=== PATIENT | male | born 1985 | race Caucasian/White ===

== ENCOUNTER 2024-08-25 14:32 | Outpatient (NON) | payer BC, SELFPAY ==
--- OUTSIDE RECORDS SUMMARY | 2024-08-25 14:37 | XMS_ITS | Encounter Summary ---
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
--- OUTSIDE RECORDS SUMMARY | 2024-08-25 14:37 | XMS_ITS | Clinical Summary ---
Author Organization [facility] Address [address] [place] [address] Care Team Providers Care Pump Oiler Name Role Phone Provider, None Primary Care Provider Unavailabl e Allergies Active Allergy Reactions Criticality Noted Date Comments Cephalexin Unknown High 05/05/2021 Medications Vyvanse 60 MG Capsule 0 04/19/2021 Active Active Problems No known active problems Social History Tobacco Use Types Packs/Day Years Used Date Smoking Tobacco: Never Smokeless Tobacco: Never Sex and Gender Information Value Date Recorded Sex Assigned at Not on file 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 Gender Identity Not on file Sexual Orientation Not on file Last Filed Vital Signs Vital Sign Reading Time Taken Comments Blood Pressure 137/93 02/11/2022 9:01 AM SUPERVISOR PAINTING SHIPYARD Pulse 120 02/11/2022 9:20 AM SUPERVISOR PAINTING SHIPYARD Temperature 36.7 C (98.1 F) 02/11/2022 9:01 AM SUPERVISOR PAINTING SHIPYARD Respiratory Rate 22 02/11/2022 9:01 AM SUPERVISOR PAINTING SHIPYARD Oxygen Saturation 97% 02/11/2022 9:01 AM SUPERVISOR PAINTING SHIPYARD Inhaled Oxygen Concentration - - Weight 95.3 kg (210 lb) 02/11/2022 9:01 AM SUPERVISOR PAINTING SHIPYARD Height 200.7 cm (6' 7) 02/11/2022 9:01 AM SUPERVISOR PAINTING SHIPYARD Body Mass Index 23.66 02/11/2022 9:01 AM SUPERVISOR PAINTING SHIPYARD Plan of Treatment Health Maintenance Due Date Last Done Comments Hepatitis C Virus (HCV) Screening 1987 TdaP Immunization 1987 Hepatitis B Immunization (1 of 3 - 19+ 3-dose series) 2006 SARS-COV-2 Immunization ( season) 2023 05/25/2020, 04/27/2020 Influenza Immunization (Seas on Ended) 2024 Respiratory Syncytial Virus (RSV) Immunization (Adult) (1 - 1-dose 75+ series) 2062 Human Papillomavirus (HPV) Immunization Aged Out No longer eligible b ased on patient's age to complete this topic Meningococcal Immunization (ACWY) Aged Out No longer eligible b ased on patient's age to complete this topic Pneumococcal Immunization Combined Aged Out No longer eligible b ased on patient's age to complete this topic Rotavirus Immunization Aged Out No lo nger eligible based on patient's age to complete this topic Insurance [facility] Care Teams Pump Oiler Relationship Specialty Start Date End Date Provider, None SCOTTIE PCP - General 05/05/21
--- OUTSIDE RECORDS SUMMARY | 2024-08-25 14:37 | XMS_ITS | Clinical Summary ---
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 Gender Identity Not on file Sexual Orientation Not on file Plan of Treatment Health Maintenance Due Date Last Done Comments Annual Physical 1990 DTaP, Tdap and Td Vaccines (6 - Tdap) 06/18/2002 06/17/2002, 07/11/1992, 07/12/1988, Additional history exists Hepatitis C 2005 COVID-19 Vaccine ( season) 2023 Hepatitis B Vaccines Completed 06/23/1997, 12/30/1996, 11/08/1996 Meningococcal Vaccine Aged Out 09/25/2005 No mauri areli eligible based on patient's age to complete this topic HPV Vaccines Aged Out No longer eligi ble based on patient's age to complete this topic Meningococcal B Vaccine Aged Out No l onger eligible based on patient's age to complete this topic Pneumococcal Vaccine: Pediatrics (0 to 5 Years) and At-Risk Patients (6 to 49 Years) Aged Out No longer eligible based on patient's age to complete this topic RSV Immunizations Under 20 Months Aged Out No longer eligible based on patient's age to complete this topic
[2024-08-25 18:53] LABS: Add Urine Microscopic? NO; Appearance Urine Clear (Clear); Glucose Urine UA Negative (Negative); Leukocyte Esterase Ur Negative LEU/UL (Negative); Nitrate Urine Negative (Negative); Specific Grav Ur 1.022 (1.001-1.035)
== END 2024-08-25 14:33 | disposition home or self-care (01) ==
LOC: ANHGOSHLAB 14:33
PROVIDERS: PCP Internal Medicine; Visit Provider Clinical Nurse Specialist
DX: R39.15 Urgency of urination (principal)
CPT/HCPCS: 81003

== ENCOUNTER 2024-09-11 14:26 | Emergency (ER) | payer BC, SELFPAY ==
--- NOTE | ~2024-09-11 | XR_ITS ---
Clinical Indication: Back pain, pneumothorax PA and lateral views of the chest: Comparison: None Findings: The lungs are clear, without evidence of focal consolidation or pleural effusion. Cardiome diastinal silhouette is within normal limits. Bones and soft tissues are unremarkable. Impression: Normal chest. Reviewed, dictated and finalized at [facility]. Impression: Normal chest.
[2024-09-11 14:32] VITALS: BP 141/93; PULSE 100; RESP 16; TEMP 36.5; O2SAT 99
--- NOTE | 2024-09-11 14:42 | ED_ITS ---
HPI - Back Pain/Injury General Chief Complaint: Back Pain/Injury Stated Complaint: Back Pain Time Seen by Provider: 09/11/24 14:33 Source: patient and RN notes reviewed Mode of arrival: ambulatory Limitations: no limitations History of Present Illness HPI Narrative: Patient presents today complaining of sudden onset pain to the right mid back under the scapula that started approximately 2 hours prior to arrival. Pain radiates down the right arm. Currently rates his pain 5/10 and took some aspirin without relief. He denies shortness of breath, chest pain, cough, recent travel or immobilization. Reports that the pain is giving him anxiety. Patient vapes. Related Data Home Medications ?Medication ?Instructions ?Recorded ?Confirmed ?Last Taken ?Type lisdexamfetamine 60 mg capsule 60 mg PO DAILY 08/25/24 09/03/24 Unknown History (Vyvanse) sertraline 100 mg tablet (Zoloft) 100 mg PO DAILY 08/25/24 09/03/24 Unknown History sertraline 50 mg tablet 50 mg PO DAILY 08/25/24 09/03/24 Unknown History Allergies Allergy/AdvReac Type Severity Reaction Status Date / Time cephalexin AdvReac Unknown Verified 09/03/24 08:52 PMFSH Past Medical History Medical History (Reviewed 09/11/24 @ 14:49 by Mercedes Moseley, [facility], ) Urinary urgency Anxiety ADHD Tachycardia BRBPR (bright red blood per rectum) Family History Family History (Reviewed 09/11/24 @ 14:49 by Mercedes Moseley, [facility], ) Grandparent Alcoholism Asthma Grandparent Diabetes mellitus Social History Social History (Reviewed 09/11/24 @ 14:49 by Mercedes Moseley, [facility], ) Smoking packs per day: 1 Smoking cigarettes per day: 20.0 Years smoked: 10 Smoking pack-years: 10.00 Smoking status: Former smoker Tobacco type: cigarettes Alcohol intake: never Substance use: never Substance use type: does not use Living arrangements: with family Spiritual care concerns: No Comments At time of signature, I have reviewed and agree with nursing past medical, surgical, social and family history unless otherwise noted. Please see nursing chart for further information. There is no relevant family history pertinent to the presenting complaint Exam Narrative: GENERAL: Well-appearing, well-nourished, and in no acute distress. HEAD: Normocephalic, atraumatic. EYES: EOMI. No redness or drainage. Conjunctivae normal. ENT: Mucous membranes pink and moist. NECK: Normal AROM. States movement of the neck can elicit pain in the affected area. CHEST: No respiratory distress. Clear to auscultation. HEART: Regular rate and rhythm. No murmur appreciated. Normal peripheral pulses. MUSCULOSKELETAL: No bony tenderness spine. Right thoracic musculature is nontender. Patient states the pain is internal EXTREMITIES: Normal range of motion. No edema. Hand network applications specialist equal and strong. Distal sensation intact. Capillary refill. Radial pulse normal. SKIN: Warm, dry, no rash. Capillary refill normal. Normal skin turgor. NEURO: No focal deficits. Alert and oriented x3. Gait steady. PSYCH: Normal affect. No signs of depression or anxiety. Course Course Level of Care: Express Care Visit Vital Signs Vital signs: Vital Signs Temperature 97.7 F 09/11/24 14:32 Pulse Rate 100 09/11/24 14:32 Respiratory Rate 16 09/11/24 14:32 Blood Pressure 141/93 H 09/11/24 14:32 Pulse Oximetry 99 09/11/24 14:32 Temperature 97.7 F 09/11/24 14:32 Pulse Rate 100 09/11/24 14:32 Respiratory Rate 16 09/11/24 14:32 Blood Pressure 141/93 H 09/11/24 14:32 Pulse Oximetry 99 09/11/24 14:32 Reviewed MDM - Back Pain/Injury MDM Narrative Medical decision making narrative: 39-year-old male patient presents complaining of sudden-onset right mid back pain under the scapula without any injury or trauma to the area. Onset 2 hours prior to arrival. Pain radiated down the right arm. Denies chest pain, shor tness of breath, recent leg swelling, cough, immobility, or travel. Aspirin taken prior to arrival without relief. Exam is grossly negative and back is nontender. Chest x-ray negative. EKG shows sinus rhythm. Wells criteria score of 0 for probable pulmonary embolism. Patient will be treated with some Flexeril for musculoskeletal etiology with recommendation for PCP follow-up next week if symptoms persist. Strict ED precautions given if symptoms worsen. Vital signs stable. Differential Diagnosis Differential diagnosis: Likely thoracic back pain and other (Pneumothorax, pulmonary embolism) Imaging Data Radiologist's impression: ITS Impressions Chest X-Ray 09/11/24 14:57 Impression: Normal chest. ECG Data EKG #1: Attestation: I personally reviewed and interpreted this ECG as follows: ECG completion date: 09/11/24 ECG completion time: 15:22 Prior ECG tracings: not available for review Interpretation: Sinus rhythm. Heart rate 69. MA interval 201 Critical Care Time Critical Care Time Critical Care Time: No Discharge Plan Discharge Clinical Impression: Mid back pain on right side Patient Disposition: Home Condition: Stable Instructions: Back Pain (ED) Additional Instructions: Your EKG and chest x-ray were negative for any acute findings today. Please take an anti-inflammatory at home such as Aleve or ibuprofen for your discomfort. Take the Flexeril to help relax any muscle spasms. Do not drive within 8 hours of taking the Flexeril as it can make you drowsy. Follow-up with your PCP (April BILLING AND INSURANCE COORDINATOR) next week if symptoms are not improving. As discussed, if you develop any additional worsening symptoms such as chest pain, shortness of breath, please go to the ER immediately for further evaluation. Patient Language: Georgian Prescriptions: New cyclobenzaprine 10 mg tablet 10 mg PO TID PRN (Reason: muscle spasm) Qty: 20 0RF No Action sertraline [Zoloft] 100 mg tablet 100 mg PO DAILY lisdexamfetamine [Vyvanse] 60 mg capsule 60 mg PO DAILY sertraline 50 mg tablet 50 mg PO DAILY Follow-up/Referrals: PHYSICIAN,PLC ENGINEER [Primary Care Provider] - April Royal, DIRECTOR MARKETING-C [Advanced Practice Nurse] - Time of Disposition: 15:28
--- NOTE | 2024-09-11 15:17 | ECG_ITS ---
Test Date: 2024-09-11 15:22:29 Measurements Intervals [place] Rate: 69 P: 71 MA: 201 QRS: 36 QRSD: 97 T: 60 QT: 402 QTc: 431 Interpretive Statements SINUS RHYTHM NORMAL ECG No previous ECG available for comparison Electronically Signed On 09-12-2024 08:06:56 CDT by Breezy Liz M.D.
== END 2024-09-11 15:35 | disposition home or self-care (01) ==
PROVIDERS: Emergency Provider Nurse Practitioner
DX: M54.6 Pain in thoracic spine (principal); F17.210 Nicotine dependence, cigarettes, uncomplicated; F90.9 Attention-deficit hyperactivity disorder, unspecified type; F41.9 Anxiety disorder, unspecified
CPT/HCPCS: 71046; 93005; 99213; G0463

== ENCOUNTER 2024-09-20 01:39 | Day surgery (SDC) | payer BC, SELFPAY ==
[2024-09-03 08:44] VITALS: BMI 21.4
--- OUTSIDE RECORDS SUMMARY | 2024-09-20 01:44 | XMS_ITS | Clinical Summary ---
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 Gender Identity Not on file Sexual Orientation Not on file Last Filed Vital Signs Vital Sign Reading Time Taken Comments Blood Pressure 137/93 02/11/2022 9:01 AM SUPERVISOR POWDER AND PRIMER CANNING Pulse 120 02/11/2022 9:20 AM SUPERVISOR POWDER AND PRIMER CANNING Temperature 36.7 C (98.1 F) 02/11/2022 9:01 AM SUPERVISOR POWDER AND PRIMER CANNING Respiratory Rate 22 02/11/2022 9:01 AM SUPERVISOR POWDER AND PRIMER CANNING Oxygen Saturation 97% 02/11/2022 9:01 AM SUPERVISOR POWDER AND PRIMER CANNING Inhaled Oxygen Concentration - - Weight 95.3 kg (210 lb) 02/11/2022 9:01 AM SUPERVISOR POWDER AND PRIMER CANNING Height 200.7 cm (6' 7) 02/11/2022 9:01 AM SUPERVISOR POWDER AND PRIMER CANNING Body Mass Index 23.66 02/11/2022 9:01 AM SUPERVISOR POWDER AND PRIMER CANNING Plan of Treatment Health Maintenance Due Date Last Done Comments Hepatitis C Virus (HCV) Screening 1987 TdaP Immunization 1987 Human Papillomavirus (HPV) Immunization (1 - Male 3-dose series) 2002 Hepatitis B Immunization (1 of 3 - 19+ 3-dose series) 2006 SARS-COV-2 Immunization ( season) 2023 05/25/2020, 04/27/2020 Influenza Immunization (#1) 2024 Respiratory Syncytial Virus (RSV) Immunization (Adult) (1 - 1-dose 75+ series) 2062 Meningococcal Immunization (ACWY) Aged Out No longer eligible b ased on patient's age to complete this topic Pneumococcal Immunization Combined Aged Out No longer eligible b ased on patient's age to complete this topic Rotavirus Immunization Aged Out No lo nger eligible based on patient's age to complete this topic Insurance [facility] Care Teams Personal Lines Insurance Advisor Relationship Specialty Start Date End Date Provider, None SCOTTIE PCP - General 05/05/21
--- OUTSIDE RECORDS SUMMARY | 2024-09-20 01:44 | XMS_ITS | Encounter Summary ---
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
--- OUTSIDE RECORDS SUMMARY | 2024-09-20 01:44 | XMS_ITS | Clinical Summary ---
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
[2024-09-20 13:27] VITALS: BP 146/96; PULSE 81; RESP 20; TEMP 36.3; O2SAT 98; BMI 21.8
[2024-09-20] MEDS: LACTATED RINGERS 1,000 ML 150 ML IV CONT (13:39)
--- NOTE | 2024-09-20 13:59 | P.PNAN_ITS ---
Anes - Initial Pre Proc Eval Procedure: Operation Date: 09/20/24 14:30 Proposed Procedures p Diagnostic Colonoscopy - Jesus Carlisle MD Date/Time: 09/20/24 13:59 Surgeon: Jesus Carlisle MD Pre Op Diagnosis: Hemorrhage of anus and rectum Patient Data Age: 39 Gender: M Height: 2.01 m Weight: 87.9 kg Last Vital Signs Temp 36.3 C L 09/20/24 13:27 Pulse 81 09/20/24 13:27 Resp 20 09/20/24 13:27 BP 146/96 H 09/20/24 13:27 Pulse Ox 98 09/20/24 13:27 O2 Del Method Room Air 09/20/24 13:27 Allergies Allergy/AdvReac Type Severity Reaction Status Date / Time cephalexin AdvReac Unknown Verified 09/20/24 13:26 Home Medications ?Medication ?Instructions ?Recorded ?Confirmed ?Type lisdexamfetamine 60 mg capsule 60 mg PO DAILY 08/25/24 09/20/24 History (Vyvanse) sertraline 100 mg tablet (Zoloft) 100 mg PO DAILY 08/25/24 09/20/24 History sertraline 50 mg tablet 50 mg PO DAILY 08/25/24 09/20/24 History cyclobenzaprine 10 mg tablet 10 mg PO TID PRN muscle spasm #20 09/11/24 09/20/24 Rx tabs Patient hx anesthesia problems: none Family hx anesthesia problems: none Results Review: All pre-operative results and documents have been reviewed as part of the pre- operative evaluation. [facility] Past Medical History Medical History Urinary urgency Anxiety ADHD Tachycardia BRBPR (bright red blood per rectum) Family History Family History Grandparent Alcoholism Asthma Grandparent Diabetes mellitus Social History Social History Smoking packs per day: 1 Smoking cigarettes per day: 20.0 Years smoked: 10 Smoking pack-years: 10.00 Smoking status: Never smoker Tobacco type: cigarettes Alcohol intake: never Substance use: never Substance use type: does not use Living arrangements: with family Spiritual care concerns: No Anes - Eval Final PreProcedure Day of Procedure 09/20/24 13:59 Patient weight: normal Heart: regular rate and rhythm Lungs: clear to auscultation Airway: Mallampati scale class II Neurological: alert and oriented Last oral intake: >/= 8 hours ASA classification: II Emergent: no Anesthetic plan: proceed Anesthesia type and monitoring: general GIVS and standard monitoring Results Review: All pre-operative results and documents have been reviewed as part of the pre- operative evaluation. Informed Consent: The patient's anesthetic plan and its attendant risks and benefits were discussed with the patient/family/POA. Questions were solicited and answers provided to the satisfaction of the patient/family/POA.
--- NOTE | 2024-09-20 14:01 | PM.HPGS ---
History of Present Illness History of Present Illness Consent: Risks, benefits, and alternatives have been discussed and questions answered. Patient agrees to proceed with procedure. Chief complaint: Hemorrhage of anus and rectum Narrative: Jefe Garcia is a 39 year old male with rectal bleeding for 6 months, had colonoscopy 2017 for same reason and was told that secondary to hemorrhoids Review of Systems Review of Systems: All systems reviewed & are unremarkable except as noted in HPI and below PMFSH Past Medical History Medical History Urinary urgency Anxiety ADHD Tachycardia BRBPR (bright red blood per rectum) Family History Family History Grandparent Alcoholism Asthma Grandparent Diabetes mellitus Social History Social History Smoking packs per day: 1 Smoking cigarettes per day: 20.0 Years smoked: 10 Smoking pack-years: 10.00 Smoking status: Never smoker Tobacco type: cigarettes Alcohol intake: never Substance use: never Substance use type: does not use Living arrangements: with family Spiritual care concerns: No Meds Home Medications and Allergies Home Medications ?Medication ?Instructions ?Recorded ?Confirmed ?Type lisdexamfetamine 60 mg capsule 60 mg PO DAILY 08/25/24 09/20/24 History (Vyvanse) sertraline 100 mg tablet (Zoloft) 100 mg PO DAILY 08/25/24 09/20/24 History sertraline 50 mg tablet 50 mg PO DAILY 08/25/24 09/20/24 History cyclobenzaprine 10 mg tablet 10 mg PO TID PRN muscle spasm #20 09/11/24 09/20/24 Rx tabs Allergies Allergy/AdvReac Type Severity Reaction Status Date / Time cephalexin AdvReac Unknown Verified 09/20/24 13:26 Vital Signs Vital Signs - 24 hr 09/20/24 13:27 Temperature 97.3 F L Pulse Rate 81 Respiratory Rate 20 Blood Pressure 146/96 H Pulse Oximetry 98 Oxygen Delivery Room Air Exam Const: General: comfortable and no acute distress HENMT: Face/Nose/Sinus: Normal nares present Eyes: General: appearance normal, both eyes and all related structures Neck: Neck: no JVD Resp: Auscultation: clear to auscultation bilaterally Cardio: Rate: regular rate Rhythm: regular rhythm GI: Inspection: non-distended GI Palp: Yes Soft to palpation Skin: General skin exam: normal color Neuro: General: gait normal Speech: normal speech Extrem: General: normal to inspection Psych: Mental Status: mental status grossly normal Assessment and Plan Assessment and plan (1) BRBPR (bright red blood per rectum): Code(s): K62.5 - Hemorrhage of anus and rectum Status: Acute Assessment and Plan: colonoscopy
[2024-09-20 14:18] VITALS: BP 91/62; PULSE 80; RESP 25; O2SAT 97
[2024-09-20 14:28] VITALS: BP 95/63; PULSE 66; RESP 20; O2SAT 100
[2024-09-20 14:38] VITALS: BP 101/67; PULSE 66; RESP 16; O2SAT 100
== END 2024-09-20 14:52 | disposition home or self-care (01) ==
PROVIDERS: Referring Provider Clinical Nurse Specialist; Visit Provider Internal Medicine Gastroenterology
PROC: 0DJD8ZZ Inspection of Lower Intestinal Tract, Via Natural or Artificial Opening Endoscopic (ICD-10-PCS; CPT 45378; principal; 2024-09-20 14:30)
DX: K64.8 Other hemorrhoids (principal); K57.30 Diverticulosis of large intestine without perforation or abscess without bleeding; R39.15 Urgency of urination; F41.9 Anxiety disorder, unspecified; F90.9 Attention-deficit hyperactivity disorder, unspecified type; R00.0 Tachycardia, unspecified
CPT/HCPCS: 45378; J2003; J2704; J7120

== ENCOUNTER 2024-10-17 15:36 | Emergency (ER) | payer BC, SELFPAY ==
[2024-10-17 15:45] VITALS: BP 129/85; PULSE 84; RESP 16; TEMP 36.4; O2SAT 98
--- NOTE | 2024-10-17 16:19 | ED_ITS ---
HPI - General Adult General Chief complaint: Skin/Abscess/Foreign Body Stated complaint: RASH Patient presents for evaluation of rash. He first noticed a lesion to the anterior aspect of the right lower leg about three weeks ago. No new lotions, soaps, detergents, topical products. About nine days ago he developed a lesion on the left lateral neck and quickly developed lesions to his torso and extremities x4 about seven days ago. At first the rash was not pruritic, however it has since become so. He denies any fever, chills, sore throat, cough shortness of breath. No recent sick contacts to his knowledge. He is not aware of anyone else that has similar findings. He has not traveled out of the country as of late. No history of similar symptoms. Related Data Home Medications ?Medication ?Instructions ?Recorded ?Confirmed ?Last Taken ?Type lisdexamfetamine 60 mg capsule 60 mg PO DAILY 08/25/24 09/20/24 09/19/24 History (Vyvanse) sertraline 100 mg tablet (Zoloft) 100 mg PO DAILY 04/2009/20/24 09/19/24 History sertraline 50 mg tablet 50 mg PO DAILY 08/25/2408/2509/19/24 History Allergies Allergy/AdvReac Type Severity Reaction Status Date / Time cephalexin AdvReac Unknown Verified 10/17/24 15:43 Review of Systems Review of Systems: CONSTITUTIONAL: Denies fever, chills, or sweats. EYES: Denies visual changes, redness, or discharge. ENT: Denies rhinorrhea, congestion, sore throat, or otalgia. CARDIOVASCULAR: Denies chest pain, palpitations, or edema. RESPIRATORY: Denies cough or dyspnea. GASTROINTESTINAL: Denies abdominal pain, nausea, vomiting, or diarrhea. GENITOURINARY: Denies dysuria or hematuria. SKIN: reports pruritic rash to the trunk and extremities x4 MUSCULOSKELETAL: Denies back pain, joint pain, or myalgia. NEUROLOGIC: Denies headache, numbness, dizziness, or weakness. PSYCHIATRIC: Denies anxiety or depression. [facility] Past Medical History Medical History Urinary urgency Anxiety ADHD Tachycardia BRBPR (bright red blood per rectum) Surgical History Surgical History No pertinent past surgical history Family History Family History Grandparent Alcoholism Asthma Grandparent Diabetes mellitus Social History Social History Alcohol intake: never Substance use: never Substance use type: does not use Living arrangements: with family Gender identity (if verbalized by the patient): Male Spiritual care concerns: No Exam Narrative: GENERAL: Well-appearing, well-nourished, and in no acute distress. HEAD: Normocephalic, atraumatic. EYES: PERRLA and EOMI. ENT: Nares clear, no rhinorrhea or epistaxis. Mucous membranes moist. Oropharynx without tonsillar hypertrophy exudate or other lesions. Bilateral TMs pearly barrios nonbulging NECK: Supple. No adenopathy or masses. No carotid bruits or JVD CHEST: Clear to auscultation. No respiratory distress. No wheezes rales or rhonchi HEART: Regular rate and rhythm. No murmur heard. Normal peripheral pulses. ABDOMEN: Soft, nontender, nondistended, normal active bowel sounds. EXTREMITIES: Normal range of motion. No edema. SKIN: Approximately 2 cm annular area of erythma to anterior aspect of right lower leg. Borders are well demarcated with some central clearing and overlying scaling. There are multiple annular areas of erythema to the trunk and extremities x4, too numerous to count. Many of these have central clearing. Some have overlying scaling NEURO: No focal deficits. Alert and oriented x3. PSYCH: Normal mood and affect. Course Course Emergency Course: This is a 39-year-old male who presented for evaluation of a pruritic rash. The area to the right lower extremity appears to be tinea. Will treat with ketoconazole. The more widespread rash appears to be pityriasis rosea. I advised that this is likely self resolving and he can take Benadryl for itching. Also discharge with triamcinolone. He should follow-up with his primary care provider and go to the ER for worsening symptoms. Patient in agreement with plan of care Level of Care: Express Care Visit Vital Signs Vital signs: Vital Signs Temperature 36.4 C 10/17/24 15:45 Pulse Rate 84 10/17/24 15:45 Respiratory Rate 16 10/17/24 15:45 Blood Pressure 129/85 10/17/24 15:45 Pulse Oximetry 98 10/17/24 15:45 Temperature 36.4 C 10/17/24 15:45 Pulse Rate 84 10/17/24 15:45 Respiratory Rate 16 10/17/24 15:45 Blood Pressure 129/85 10/17/24 15:45 Pulse Oximetry 98 10/17/24 15:45 Medical Decision Making Vital Signs Vital Signs: Vital Signs Temperature 36.4 C 10/17/24 15:45 Pulse Rate 84 10/17/24 15:45 Respiratory Rate 16 10/17/24 15:45 Blood Pressure 129/85 10/17/24 15:45 Pulse Oximetry 98 10/17/24 15:45 Temperature 36.4 C 10/17/24 15:45 Pulse Rate 84 10/17/24 15:45 Respiratory Rate 16 10/17/24 15:45 Blood Pressure 129/85 10/17/24 15:45 Pulse Oximetry 98 10/17/24 15:45 Discharge Plan Discharge Clinical Impression: Pityriasis rosea Patient Disposition: Home Condition: Stable Instructions: Antibiotic Form, Pityriasis rosea (ED) Additional Instructions: APPLICATION OF TOPICAL TRIAMCINOLONE SHOULD HELP BENADRYL BY MOUTH MAY HELP WITH ITCHING YOU MAY TRY KETOCONAZOLE ON THE AREA TO YOUR LOWER LEG PLEASE FOLLOW-UP WITH YOUR PRIMARY CARE Patient Language: Monegasque Prescriptions: New triamcinolone acetonide 0.1 % cream 1 applic topical QID Qty: 453.6 1RF ketoconazole 2 % cream 1 applic topical BID Qty: 60 0RF No Action sertraline [Zoloft] 100 mg tablet 100 mg PO DAILY lisdexamfetamine [Vyvanse] 60 mg capsule 60 mg PO DAILY sertraline 50 mg tablet 50 mg PO DAILY Follow-up/Referrals: April Royal, [employer]ISTER[employer] NURSE-C [Advanced Practice Nurse, Internal Medicine] Time of Disposition: 16:18
== END 2024-10-17 16:19 | disposition home or self-care (01) ==
PROVIDERS: Emergency Provider Nurse Practitioner
DX: L42 Pityriasis rosea (principal); F90.9 Attention-deficit hyperactivity disorder, unspecified type; F41.9 Anxiety disorder, unspecified
CPT/HCPCS: 99213; G0463

== ENCOUNTER 2024-12-03 08:49 | Emergency (ER) | payer BC, MEDICAID, SELFPAY ==
--- NOTE | 2024-12-03 08:57 | ED.URI ---
HPI - URI/Sore Throat General Chief Complaint: Upper Respiratory Infection Stated Complaint: SORE THROAT Time Seen by Provider: 12/03/24 08:50 Source: patient Mode of arrival: ambulatory Limitations: no limitations History of Present Illness HPI Narrative: Patient is a 39-year-old male who presents with sore throat, congestion for 5 days. Patient started taking penicillin yesterday. Denies any fever, chills, nausea, vomiting, diarrhea. Patient has also been taking Tylenol and ibuprofen. Related Data Home Medications ?Medication ?Instructions ?Recorded ?Confirmed ?Last Taken ?Type lisdexamfetamine 60 mg capsule 60 mg PO DAILY 08/25/24 09/20/24 09/19/24 History (Vyvanse) sertraline 100 mg tablet (Zoloft) 100 mg PO DAILY 08/25/24 09/20/24 09/19/24 History sertraline 50 mg tablet 50 mg PO DAILY 08/25/24 09/20/24 09/19/24 History Allergies Allergy/AdvReac Type Severity Reaction Status Date / Time cephalexin AdvReac Unknown Verified 12/03/24 08:56 Review of Systems Review of Systems: All systems reviewed & are unremarkable except as noted in HPI and below Constitutional: Constitutional: Denies chills, Denies fatigue, Denies fever(s), Denies headache(s), Denies malaise and Denies weakness Eyes: Eyes: Denies blurry vision, Denies itchy eyes and Denies loss of vision ENT: Denies otalgia, Denies headache(s), Reports nasal congestion, Denies sinus pain and Reports sore throat Cardiovascular: Cardiovascular: Denies chest pain, Denies irregular heart rhythm and Denies dyspnea Respiratory: Respiratory: Denies cough and Denies dyspnea Gastrointestinal: Gastrointestinal: Denies abdominal pain, Denies diarrhea, Denies nausea and Denies vomiting Musculoskeletal: Musculoskeletal: Denies back pain, Denies myalgias and Denies arthralgias Integumentary/Breasts: Skin/Breast: Denies pruritus and Denies rash Neurologic: Denies headache(s), Denies loss of vision and Denies weakness Psychiatric: Psychiatric: Reports no additional psychiatric complaints Endocrine: Endocrine: Denies fatigue Allergic/Immunologic: Allergic/Immunologic: Denies itchy eyes PMFSH Past Medical History Medical History Urinary urgency Anxiety ADHD Tachycardia BRBPR (bright red blood per rectum) Surgical History Surgical History No pertinent past surgical history Family History Family History Grandparent Alcoholism Asthma Grandparent Diabetes mellitus Social History Social History Alcohol intake: never Substance use: never Substance use type: does not use Living arrangements: with family Gender identity (if verbalized by the patient): Male Spiritual care concerns: No Comments At time of signature, agree with nursing past medical, surgical, social and family history. There is no relevant family history pertinent to the presenting complaint. Exam Const: General: cooperative, healthy appearing, comfortable, no acute distress and well nourished Nutritional Appearance: well nourished Orientation/consciousness: patient oriented x3 Limitations: no limitations HENMT: Head: normal to inspection, normocephalic and atraumatic Ears: hearing grossly normal bilaterally, external ears normal, TM's normal bilaterally, EAC's normal and no periauricular adenopathy Face/Nose/Sinus: Normal external nose present, Abnormal mucous membranes and turbinates present erythematous bilateral and diffuse, normal facial exam, sinuses nontender and face symmetric Face and sinus: normal facial exam, sinuses nontender and face symmetric Mouth: Yes Normal oral and palatal mucosa present, Yes lip normal, Yes tongue normal, Yes Normal salivary glands and ducts present, Yes oropharynx normal and Yes moist mucous membranes Teeth and gingiva: dentition normal Throat: tonsils normal, uvula midline and posterior oropharynx abnormal erythema and exudates Eyes: General: appearance normal, both eyes and all related structures Alignment and Position: alignment normal and position normal Periorbital: periorbital findings normal Eyelids: eyelids normal Pupils: Equal, round and reactive pupils present Neck: Neck: normal visual inspection, full ROM, no lymphadenopathy and supple Chest: Chest palpation & inspection: normal inspection of the chest and normal palpation of entire chest wall Resp: Effort & Inspection: normal respiratory effort and able to speak in complete sentences Auscultation: clear to auscultation bilaterally, no crackles, no rales, no rhonchi and no wheezes Cardio: Rate: tachycardic Rhythm: regular rhythm Heart sounds: S1 normal heart sound present and S2 normal heart sound present GI: Inspection: normal to inspection Skin: General skin exam: normal color and no rashes or lesions noted Neuro: General: patient oriented x3 and moves all extremities Cranial nerves: Yes Equal, round and reactive pupils present Speech: normal speech Gait exam (Neuro): Normal gait present Extrem: General: normal to inspection, full ROM and no edema Psych: Appearance: grossly normal and well kempt Mental Status: mental status grossly normal Speech and movement: Normal speech and movement present Affect: normal affect Attitude: cooperative Thought process: Normal thought process present Course Course Emergency Course: Discharge instructions reviewed with patient, as well as provided in writing per nursing staff. The instructions also include specific and strict return/GO TO THE ER as well as f/u information. All questions have been answered, and the patient deny any further questions with discharge and discharge plan. Portions of this record may have been created with voice recognition software Level of Care: Express Care Visit Vital Signs Vital signs: Reviewed MDM - URI/Sore Throat MDM Narrative Medical decision making narrative: Pt well hydrated appearing, in no respiratory distress, hemodynamically stable. Recommend supportive care. The patient is stable at time of discharge the clinical impression was discussed and the patient was given the opportunity to ask questions, which were addressed as completely as possible given the information available at present. Anticipatory guidance and return to care precautions were discussed and the importance of primary care follow-up was stressed and encouraged. The patient voiced understanding of the plan, indications to return, and the need for follow-up. Exam findings show no acute concerns or changes Patient is appropriate for outpatient treatment and follow-up. Differential diagnosis considered: Tineo virus, strep pharyngitis, allergic rhinitis, upper respiratory tract infection, sinusitis, rhinosinusitis, nasopharyngitis. viral pharyngitis, otitis media, otitis externa, otitis effusion, foreign body, cerumen impaction, viral syndrome, and influenza.? Medical Records Attestation: I reviewed the patient's medical records. Lab Data Attestation: I reviewed the patient's lab results. Discharge Plan Discharge Clinical Impression: Pharyngitis Patient Disposition: Home Condition: Stable Instructions: Pharyngitis (ED) Additional Instructions: Throw tooth brush away and start using a new one. Wash your sheets and cup/water bottle that is used daily. Do not share drinks. Take Motrin alternating with Tylenol for pain and fever alternating every 3 hours. 8 AM: Tylenol 11 AM: Ibuprofen 2 PM: Tylenol 5 PM: Ibuprofen 8 PM: Tylenol 11 PM: Ibuprofen 2 AM: Tylenol 5 AM: Ibuprofen Increase fluids, avoid caffeine. Other symptomatic treatments include: -Antihistamine medication such as Benadryl at night and Zyrtec/Claritin/Radha during the day can help improve symptoms. -Use Flonase twice a day for 5 days then daily to help reduce the inflammation and dry up your sinuses. -You can also use Sudafed or Mucinex. Be sure to drink plenty of water with these medications at least 8 ounces with every dose and it is important to drink 8 to 10 glasses of water per day. Water is a natural decongestant -Eat and drink things that are easy to swallow, like tea or soup, or popsicles. -Oral rinses such as: Salt water gargles and/or may use topical anesthetic (eg. Chloraseptic spray) or lozenges to relieve dryness or throat pain). -Frequent hand washing or hand career transition specialist is one of the best ways to prevent spread of infection. -Using a vaporizer or humidifier at night will also help thin secretions and help with coughing up phlegm. -Follow up with primary care provider in 3-5 days if condition is not improving - For new or worsening symptoms go directly to the nearest ER Patient Language: Lao Prescriptions: New penicillin V potassium 500 mg tablet 500 mg PO Q12H 10 Days Qty: 20 0RF No Action triamcinolone acetonide 0.1 % cream 1 applic topical QID Qty: 453.6 1RF ketoconazole 2 % cream 1 applic topical BID Qty: 60 0RF sertraline [Zoloft] 100 mg tablet 100 mg PO DAILY lisdexamfetamine [Vyvanse] 60 mg capsule 60 mg PO DAILY sertraline 50 mg tablet 50 mg PO DAILY Follow-up/Referrals: April Royal, [facility] [employer]GER-C [Primary Care Provider, Internal Medicine] - 3 Days Time of Disposition: 09:20
[2024-12-03 09:01] VITALS: BP 125/82; PULSE 103; RESP 16; TEMP 36.5; O2SAT 99
[2024-12-03 09:11] LABS: EDSTREPNEGPOS1 Negative (Negative)
== END 2024-12-03 09:26 | disposition home or self-care (01) ==
PROVIDERS: Emergency Provider Nurse Practitioner Family; PCP Clinical Nurse Specialist
DX: J02.9 Acute pharyngitis, unspecified (principal); F90.9 Attention-deficit hyperactivity disorder, unspecified type; F41.9 Anxiety disorder, unspecified
CPT/HCPCS: 87081; 87880; 99213; G0463

== ENCOUNTER 2024-12-27 08:30 | Outpatient (CLI) | payer BC, MEDICAID, SELFPAY ==
--- NOTE | ~2024-12-27 | XR_ITS ---
EXAMINATION: XR shoulder LT min 2V, 12/27/2024 8:44 [employer] HISTORY: Pain in left shoulder x 3 months, golf injury in September COMPARISON: No comparisons available. Findings: No acute fracture or malalignment. No significant degenerative changes. Soft tissues unremarkable. Impression: No acute fracture or malalignment. Reviewed, dictated and finalized at location P. [employer] Impression: No acute fracture or malalignment.
== END 2024-12-27 08:31 | disposition home or self-care (01) ==
PROVIDERS: PCP Clinical Nurse Specialist; Visit Provider Clinical Nurse Specialist
DX: M25.512 Pain in left shoulder (principal)
CPT/HCPCS: 73030

== ENCOUNTER 2025-02-02 13:20 | Outpatient (CLI) | payer BC, MEDICAID, SELFPAY ==
--- NOTE | ~2025-02-02 | MR_ITS ---
EXAM/PROCEDURE: MR shoulder LT wo con HISTORY: M25.512 - Pain in left shoulder COMPARISON: X-rays from December 27, 2024 TECHNIQUE: Noncontrast enhanced multiplanar left shoulder MRI FINDINGS: No fracture subluxation or dislocation. Small focal defect along the bursal and articular margin of the supraspinatus tendon can be seen on images 17 through 21 of series 9. No discrete full- thickness tear seen. At the insertion there is also a small focal area of edematous appearing changes in the greater tuberosity. The remainder the rotator cuff appears normal. No ligamentous disruption seen. No definite labral tear on this nonarthrographic series. The long head of the biceps tendon is intact within the bicipital groove and superior labral attachment appears intact. Spinoglenoid recess and suprascapular notch regions appear normal. IMPRESSION: 1. Small partial-thickness tears in the supraspinatus tendon with contused appearance of the greater tuberosity possibly associated with stress injury. No fracture subluxation or dislocation. 2. Otherwise negative left shoulder MRI. Reviewed, dictated and finalized at location A. [employer] IMPRESSION: 1. Small partial-thickness tears in the supraspinatus tendon with contused appe arance of the greater tuberosity possibly associated with stress injury. No fra cture subluxation or dislocation. 2. Otherwise negative left shoulder MRI.
== END 2025-02-02 13:21 | disposition home or self-care (01) ==
LOC: MICIMG 13:20
PROVIDERS: PCP Clinical Nurse Specialist; Visit Provider Clinical Nurse Specialist
DX: M75.112 Incomplete rotator cuff tear or rupture of left shoulder, not specified as traumatic (principal)
CPT/HCPCS: 73221